=== PATIENT | female | born 1975 | race African-American/Black ===

== ENCOUNTER 2017-01-25 09:06 | Emergency (ER) | payer OTHER ==
[~2017-01-25] VITALS: Ht 177.8 cm; Wt 172.4 kg
[~2017-01-25 09:06] MED LIST: DRISDOL50000 IU PO; FOLIC ACID 1 MG PO; GABAPENTIN300 MG PO; LYRICA75 MG PO; MIRALAX17 GM PO; MOTRIN 400 MG400 MG PO; ROXICODONE5 MG PO; SENOKOT8.6 MG PO; TYLENOL TAB 32325 MG PO; ULTRAM(MONOGRAP50 MG PO; VICOPROFEN 7.51 TAB PO; VITAMIN B1100 MG PO
[2017-01-25 09:10] VITALS: BP 139/82
--- NOTE | 2017-01-25 10:16 | ED GENERAL ADULT ---
History of Present Illness General Chief Complaint: General Adult Stated Complaint: PAIN IN L SHOULDER RADIATES INTO FACE Source: patient Exam Limitations: no limitations Vital Signs & Intake/Output Vital Signs & Intake/Output Vital Signs Date Time Temp Pulse Resp B/P B/P Pulse O2 O2 Flow FiO2 Mean Ox Delivery Rate 01/25 0910 99.1 122 20 139/82 98 Room Air Allergies Coded Allergies: NO KNOWN ALLERGIES (08/12/15) Per IC writen order NKA. -- Samuel 05/30/15 Reconcile Medications Pregabalin (Lyrica) 75 MG CAPSULE 1 CAP PO TID PAIN (Reported) Tramadol HCl 50 MG TABLET 1 TAB PO TIDPRN PRN PAIN (Reported) Triage Note: PT TO ED C/O LEFT SHOULDER PAIN X WEEKS. STATES IT NOW RADIATES TO HER LEFT EAR, STARTED THIS AM. H/O MS. DENIES ANY INJURY. DENIES C/P. PT CRYING/MOANING IN TRIAGE. STATES PT HAS BEEN LIKE THIS FOR WEEKS. Triage Nurses Notes Reviewed? yes Onset: Gradual Duration: worse persistent since (2-3 WEEKS) Timing: recent history Injury Environment: home Severity: moderate, severe Severity Numbers: 9 Modifying Factors: Improves With: immobilization. Worsens With: movement. : No Patient currently breastfeeds: No HPI: Patient is a 41-year-old female with history of multiple sclerosis presenting to the emergency department chief complaining of left shoulder pain that radiates up into her face. Per symptoms have been going on for the past 2-3 weeks, symptoms worse over the past couple days. Symptoms have been constant. Pain is sharp and stabbing. Has been taking her at-home tramadol without relief. History of similar pain in the past but nothing this bad. Denies any chest pain palpitations or shortness of breath. Pain is worse with range of motion of the left upper extremity. Denies any weakness. Denies any jaw pain. No back pain. Denies abdominal pain. Patient reports that she is supposed to be set up for IV infusion of steroids outpatient but has not yet made the phone call to her neurologist. Denies any trauma. No heavy lifting. Denies any change in hearing. No fevers or chills. (VICTOR HUGO PAZ) Past History Travel History Traveled to [place] past 21 day No Medical History Any Pertinent Medical History? see below for history Neurological: multiple sclerosis EENT: NONE Cardiovascular: NONE Respiratory: NONE Gastrointestinal: GASTRIC BYPASS Hepatic: NONE Renal: NONE Musculoskeletal: NONE Psychiatric: depression, alcohol abuse Endocrine: NONE Blood Disorders: IRON DEFICIENT ANEMIA Cancer(s): NONE REHABILITATION INSPECTOR/Reproductive: NONE History of MRSA: No History of VRE: No History of CDIFF: No Surgical History Surgical History: (x3) Psychosocial History Who do you live with Family Services at Home None What is your primary language [place] Tobacco Use: Never used ETOH Use: denies use Illicit Drug Use: denies illicit drug use Family History Family History, If Any: MOTHER Relation not specified for: FH: hypertension Hx Contributory? No (VICTOR HUGO PAZ) Review of Systems Review of Systems Constitutional: Reports: no symptoms. Comments Review of systems: See HPI, All other systems negative. Constitutional, no chills fever or weight loss HEENT: No visual changes no sore throat no congestion Cardiovascular: No chest pain ,palpitation , orthopnea or ankle swelling Skin, no jaundice no rashes Respiratory: No dyspnea cough sputum or hemoptysis GI: No nausea no vomiting : No dysuria No hematuria Muscle skeletal: no back pain, no neck pain, Neurologic: No numbness no confusion NO SANTOYO Psych: No stress anxiety or depression,. Heme/endocrine: No bruising no bleeding no polyuria or polydipsia Immunology: No splenectomy or history of AIDS (VICTOR HUGO PAZ) Physical Exam Physical Exam General Appearance: alert, anxious, mild distress Comments: Well-developed well-nourished person in MILD DISTRESS HEENT: Atraumatic Nose is atraumatic. No tenderness to palpation over the mastoid bones bilaterally. TM CLEAR BILATERALLY. CANALS CLEAR. Neck: Supple, no lymphadenopathy, normal range of motion without pain or tenderness Back: mild tenderness to palpation in the cervical paraspinal muscles in the thoracic paraspinal muscles on the left side. No bony tenderness. Cardiovascular: Regular rate and rhythms no murmurs rubs or gallops, normal JVP Respiratory: Chest nontender. No respiratory distress.breath sounds clear to auscultation bilaterally Abdomen: Soft, nontender nondistended, no appreciable organomegaly. Normal bowel sounds. No ascites Extremity: No edema, radial pulses are 2+ bilaterally. Limited range of motion of left upper extremity secondary to pain. Pain to palpation of the left anterior shoulder. No crepitus palpated. Growth Media Mixer Mushroom strength is equal and symmetric bilaterally. Neuro: Alert oriented x3, motor sensory normal Skin: No appreciable rash on exposed skin, skin is warm and dry. Psych: Anxious, memory and judgment is normal. Core Measures ACS in differential dx? Yes CVA/TIA Diagnosis: No Severe Sepsis Present: No Septic Shock Present: No (NICK MANRIQUEZ,VICTOR HUGO) Progress Differential Diagnoses I considered the following diagnoses in my evaluation of the patient: MS exacerbation, shoulder dislocation, shoulder fracture, ACS, medication seeking, muscle strain Plan of Care: Orders Procedure Date/time Status Telemetry/Scraper Loader Operator 01/25 1021 Active TROPONIN LEVEL 01/25 1019 Complete COMPREHENSIVE METABOLIC PANEL 01/25 1019 Complete CBC WITHOUT DIFFERENTIAL 01/25 1019 Complete EKG 01/25 0958 Active Laboratory Tests 01/25/17 1038: Anion Gap 13, Estimated GFR > 60, BUN/Creatinine Ratio 13.3, Glucose 75, Calcium 9.1, Total Bilirubin 0.7, AST 41 H, ALT 27, Alkaline Phosphatase 113, Troponin I < 0.01, Total Protein 7.1, Albumin 4.0, Globulin 3.1, Albumin/Globulin Ratio 1.3, CBC w Diff MAN DIFF ORDERED, RBC 4.26, MCV 70.5 L, MCH 21.5 L, RDW 29.8 H, MPV 8.2, Segmented Neutrophils 47, Lymphocytes 39, Monocytes 14 H, Platelet Estimate ADEQUATE, Hypochromic-Microcytic 2+, Poikilocytosis 2+, Anisocytosis 2+ , PUBS MCHC 30.5 L Diagnostic Imaging: Viewed by Me: Radiology Read. Discussed w/RAD: Radiology Read. Radiology Impression: PATIENT: LALA JEAN PRESENT AGE: 41 PATIENT ACCOUNT NO: [id number] : 76 LOCATION: [facility] ORDERING PHYSICIAN: VICTOR HUGO MANRIQUEZ SERVICE DATE: 01/25/17 EXAM TYPE: RAD - XRY-SHOULDER COMPLETE-LEFT EXAMINATION: XR SHOULDER, LEFT CLINICAL INFORMATION: Left shoulder pain. COMPARISON: None TECHNIQUE: Three views of the left shoulder. FINDINGS: The bones and soft tissues are normal. No fracture. Glenohumeral and acromioclavicular alignment is anatomic with normal joint space. No abnormal soft tissue calcifications. IMPRESSION: No evidence of fracture or dislocation of the left shoulder. No significant abnormality noted. DICTATED BY: CHIN TSAI MD DATE/TIME DICTATED:01/25/171139 CHILD DEVELOPMENT SPECIALIST: LIANG DATE/TIME TRANSCRIBED:01/25/171139 CONFIDENTIAL, DO NOT COPY WITHOUT APPROPRIATE AUTHORIZATION. <Electronically signed in Other Vendor System> SIGNED BY: CHIN TSAI MD 01/25/171145 CXR Impression: PATIENT: LALA JEAN PRESENT AGE: 41 PATIENT ACCOUNT NO: [id number] : 76 LOCATION: [facility] ORDERING PHYSICIAN: VICTOR HUGO MARNIQUEZ SERVICE DATE: 01/25/17 EXAM TYPE: RAD - XRY-CHEST XRAY, PA AND LATERAL EXAMINATION: XR CHEST CLINICAL INFORMATION: Left shoulder pain. Rule out cardiomegaly. COMPARISON: None TECHNIQUE: 2 views of the chest were obtained. FINDINGS: Apical lordotic positioning. Cardiac silhouette is within normal limits for technique. No vascular congestion or overt edema. The lungs are well expanded. No consolidation or effusion. IMPRESSION: No acute cardiopulmonary findings. DICTATED BY: ROBERT COLE MD DATE/TIME DICTATED:1127 CHILD DEVELOPMENT SPECIALIST:LIANG DATE/TIME TRANSCRIBED:01/25/171127 Initial ED EKG: NSR (92 BPM) Comments: On arrival patient seems to be very anxious. Pain seems to come and go during interview. Patient seems to calm down if distracted by talking about something. Patient will be admitted with pain medication. EKG is normal sinus. Pain is reproducible on exam. Patient has been going on constantly for the past several weeks worse over the past couple days. No associated symptoms. X-rays are negative. Troponin is negative. She feeling much improved after IV steroids and Dilaudid and morphine. Patient has almost full range of motion after medications. Discussed with Dr. Hays, he agrees that this is likely exacerbation of chronic pain. Patient will follow-up with her neurologist. Patient nontoxic. No shortness of breath, no hemoptysis. Denies any chest pain. Denies any lower Nicole swelling. No recent travel. (NICK MANRIQUEZ,VICTOR HUGO) Departure Departure Time of Disposition: 1226 Disposition: HOME OR SELF CARE Condition: Stable Clinical Impression Primary Impression: Left shoulder pain Qualifiers: Chronicity: chronic Qualified Codes: M25.512 - Pain in left shoulder; G89.29 - Other chronic pain Referrals: KEVIN SELBY MD (PCP/Family) Additional Instructions: Follow-up with your neurologist call to make an appointment. Continue taking previously prescribed tramadol for pain. Return for worsening symptoms or concerns. Avoid heavy lifting. Departure Forms: Customer Survey General Discharge Information (VICTOR HUGO PAZ) PA/WAITER/WAITRESS COCKTAIL LOUNGE Co-Sign Statement Statement: ED Attending supervision documentation- [] I saw and evaluated the patient. I have also reviewed all the pertinent lab results and diagnostic results. I agree with the findings and the plan of care as documented in the PA's/WAITER/WAITRESS COCKTAIL LOUNGE's documentation. [X] I have reviewed the ED Record and agree with the PA's/WAITER/WAITRESS COCKTAIL LOUNGE's documentation. [] Additions or exceptions (if any) to the PAs/WAITER/WAITRESS COCKTAIL LOUNGE's note and plan are summarized below: [] (LIVIA HAYS DO) Critical Care Note Critical Care Note Critical Care Time: non-applicable (VICTOR HUGO PAZ)
[2017-01-25] MEDS ORDERED: TRAMADOL HCL50 M1 PO (11:18)
[2017-01-25] MEDS ORDERED: LYRICA75 M1 PO (11:19)
[2017-01-25 11:24] LABS: WHITE BLOOD CELL COUNT 4.1 /CUMM (4.8-10.8)
[2017-01-25 11:28] LABS: HEMATOCRIT 30.1 % (37-47); MEAN CORPUSCULAR HGB 21.5 PG (27.0-31.0); MEAN CORPUSCULAR HGB CONC 30.5 G/DL (33.0-37.0); MEAN CORPUSCULAR VOLUME 70.5 FL (81.0-99.0); MEAN PLATELET VOLUME 8.2 FL (7.4-10.4); PLATELET COUNT 320 /CUMM (130-400); RBC DISTRIBUTION WIDTH 29.8 % (11.5-14.5); RED BLOOD CELL CT 4.26 /CUMM (4.20-5.40)
--- NOTE | 2017-01-25 11:34 | RADIOLOGY REPORT ---
EXAMINATION: XR CHEST CLINICAL INFORMATION: Left shoulder pain. Rule out cardiomegaly. COMPARISON: None TECHNIQUE: 2 views of the chest were obtained. FINDINGS: Apical lordotic positioning. Cardiac silhouette is within normal limits for technique. No vascular congestion or overt edema. The lungs are well expanded. No consolidation or effusion. IMPRESSION: No acute cardiopulmonary findings.
--- NOTE | 2017-01-25 11:46 | RADIOLOGY REPORT ---
EXAMINATION: XR SHOULDER, LEFT CLINICAL INFORMATION: Left shoulder pain. COMPARISON: None TECHNIQUE: Three views of the left shoulder. FINDINGS: The bones and soft tissues are normal. No fracture. Glenohumeral and acromioclavicular alignment is anatomic with normal joint space. No abnormal soft tissue calcifications. IMPRESSION: No evidence of fracture or dislocation of the left shoulder. No significant abnormality noted.
== END 2017-01-25 12:34 ==
LOC: ERH 09:06
PROVIDERS: Physician Assistant
DX: M25.512 Pain in left shoulder (principal); G35 Multiple sclerosis
CPT/HCPCS: 73030-LT; 93005; 93010; 96374; 96375; J2930